=== PATIENT | female | born 1995 | race Two or more races ===

== ENCOUNTER 2023-01-27 13:20 | Emergency (ER) | payer OTHER ==
[~2023-01-27] VITALS: Ht 157.5 cm; Wt 59.9 kg
[2023-01-27 15:34] LABS: HEMATOCRIT 43.1 % (36.0-45.00); MEAN CELL VOLUME 88.9 fL (80.00-100.00); MEAN CORPUSCULAR HEMOGLOBIN 30.8 pg (27.00-32.0); MEAN CORPUSCULAR HGB CONC 34.7 g/dl (32.0-36.0); PLATELET COUNT 137 K/uL (150-450); RED BLOOD COUNT 4.85 M/uL (4.00-6.00); RED CELL DISTRIBUTION WIDTH 13.9 % (11.5-14.5)
== END 2023-01-27 16:07 | disposition home or self-care (01) ==
LOC: ER 13:20
PROVIDERS: Nurse Practitioner Family
DX: A92.8 Other specified mosquito-borne viral fevers (principal); Z20.822 Contact with and (suspected) exposure to COVID-19